=== PATIENT | female | born 1965 | race Native Hawaiian/Other Pacific Islander ===

== ENCOUNTER → 2022-08-10 | Outpatient (CLI) | payer OTHER ==
--- NOTE | 2022-08-10 15:09 | P.SLEEP ---
History of Present Illness DATE: 08/10/2022 CONSULTATION/NEW PATIENT EVALUATION HISTORY OF PRESENT ILLNESS/SLEEP-WAKE EVALUATION: 57year old lady had been ev aluated in the sleep center for possible obstructive sleep apnea hypopnea syndrome. Patient has history of obstructive sleep apnea hypopnea syndrome diagnosed in another institution about 6 years ago at that time she was started on treatment with CPAP, but then 4 different reasons the treatment was stopped. At the present time patient wants start treatment again. SLEEP SCHEDULE: Usually sleep schedule from 9 -11 PM and then patient wakes up every 2 hours up to 6 times . FALLING ASLEEP: Patient has some problems with the falling asleep, has TV set and bedroom. Restless leg symptoms. DURING SLEEP: [] Usually she sleeps on the side position with severe snoring and stop breathing during the sleep.No history of hypnogogical hallucinations, sleep paralysis, or cataplexy. Patient wakes up from sleep more than 6 times with nocturia. DURING THE DAY/WAKE STATE: In the morning patient wake up tired, falling asleep during the day, has problems with concentration, irritability, depression, s exual dysfunction.. [place] sleepiness scale significantly increased to 16. Sometimes patient may take naps during the day. PAST MEDICAL HISTORY: Diabetes mellitus, acid reflux, anxiety, colon cancer. PAST SURGICAL HISTORY: Status post surgical treatment of Colon CA.. MEDICATIONS: Metformin 500 mg 2 tablets twice a day, bupropion 150 mg once a day,Trazodone 50 mg at bedtime, gabapentin 600 mg twice a day, omeprazole 40 mg once a day,Ativan 1 mg at bedtime, Zocor 20 mg once a day, insulin, ozempic, pioglitazone. SOCIAL HISTORY: Positive for smoking for 40 years , alcohol consumption occ asional. FAMILY HISTORY: Hypertension, arthritis, sleep apnea, thyroid problems, diabetes. REVIEW OF SYSTEMS: Loud snoring, multiple awakenings from sleep, sleepiness. No fevers. No double vision. No recent chest pain. No shortness of breath. No abdominal pain. No bleeding episodes. No blood in urine. No seizure episodes. PHYSICAL EXAMINATION: GENERAL: A pleasant patient without any distress. VITAL SIGNS: BP 120/74, HR 70, RR 16, weight 192.2 pounds, height 5 foot 4-1/2 inches, body mass index 32.4. HEENT: PERRLA, EOMI. Evaluation of oropharynx showed tongue protrudes midline, low position of soft palate Mallampati 4. NECK: Supple. No JVD. Thyroid is not palpable. 16-1/4 inches in circumference. LUNGS: Clear to percussion and to auscultation. Good air exchange. No wheezing or rhonchi. HEART: S1, S2 regular. No murmurs, gallops or rubs. ABDOMEN: Soft and nontender. Bowel sounds are present. No organomegaly appreciated. EXTREMITIES: No clubbing or cyanosis. 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 Cranial nerves 2 to 7 intact. There is no fasciculation or atrophy noted. No focal deficits observed. ASSESSMENT: 1. Loud snoring, multiple awakenings from sleep, daytime sleepiness [place] Sleepiness Scale is 16, extremely low position of soft palate Mallampati 4, wide neck 16-1/4 inches in circumference, history of obstructive sleep apnea hypopnea syndrome in the past. Obstructive sleep apnea-hypopnea syndrome. 2. Diabetes mellitus. 3 obesity body mass index 32.4. 4. Acid reflux. 5 history of colon cancer, status post surgical treatment. 6. History of restless leg symptoms. 7. Anxiety. PLAN: 1. Polysomnography for evaluation of patient's breathing during sleep. 2. CPAP/BiPAP titration if sleep study confirms obstructive sleep apnea- hypopnea syndrome. 3. Preferable position during sleep on the side. 4. No driving if patient feels any sleepiness. Patient is aware of civil and criminal liability for unsafe driving. 5. Sleep hygiene with regular sleep time for at least 7.5-8 hours. 6. Watching weight. 7. Smoking cessation program Thank you very much for referring this patient for consultation. Sincerely, Jeff Mahajan MD, PhD, FAASM. Diplomat of [employer], Sleep Medicine Board by [employer] [employer] [facility] [place] Sleep Note - Sleep Note Sleep Note: Temperature: Pulse Rate: Respiratory Rate: Blood Pressure: SpO2: Height: Weight: BMI: Neck Circumference:
== END ==
LOC: SLEEP 14:05
PROVIDERS: ATTEND Internal Medicine
DX: G47.33 Obstructive sleep apnea (adult) (pediatric) (principal); E11.9 Type 2 diabetes mellitus without complications; K21.9 Gastro-esophageal reflux disease without esophagitis; F41.9 Anxiety disorder, unspecified; Z98.890 Other specified postprocedural states; Z85.038 Personal history of other malignant neoplasm of large intestine; E66.9 Obesity, unspecified; Z68.32 Body mass index [BMI] 32.0-32.9, adult; Z79.4 Long term (current) use of insulin
CPT/HCPCS: 99202

== ENCOUNTER 2024-08-13 08:30 | Day surgery (SDC) | payer MEDICARE, OTHER ==
[2024-08-08 15:10] VITALS: BMI 30.2
[2024-08-13 08:58] VITALS: TEMP 97.7
[2024-08-13] MEDS: LACTATED RINGERS 1,000 ML IV SCH (09:07)
[2024-08-13] MEDS: IV FLUID CONTINUATION 1,000 ML IV ONE (09:08)
[2024-08-13 09:14] LABS: Glucose,Whole Blood 202 mg/dL (70-110)
[2024-08-13] MEDS ORDERED: PROPOFOL 10 MG/ML 20 ML VIAL IV ONE (09:47)
[2024-08-13] MEDS ORDERED: LIDOCAINE 1% INJ 10MG/ML (20 ML MDV) ONE (09:47)
--- NOTE | 2024-08-13 09:53 | P.GSHP ---
History of Present Illness H&P Date: 08/13/24 Chief Complaint: Cancer screening 59-year-old female here for colonoscopy. Patient diagnosed with colon cancer at age 37. Last colonoscopy 5 years ago normal. No bowel complaints. Past Medical History Past Medical History: Cancer, Diabetes Mellitus, GERD/Reflux, Skin Disorder, Sleep Apnea/CPAP/BIPAP Additional Past Medical History / Comment(s): colon CA 2001-no radiation or chemo,psoriasis,no cpap History of Any Multi-Drug Resistant Organisms: None Reported Past Surgical History: Bowel Resection, Hysterectomy Additional Past Surgical History / Comment(s): colonoscopies Past Anesthesia/Blood Transfusion Reactions: No Reported Reaction Additional Past Anesthesia/Blood Transfusion Reaction / Comment(s): no hx blood transfusion Smoking Status: Former smoker - Past Family History Mother Family Medical History: No Reported History Medications and Allergies Home Medications Medication Instructions Recorded Confirmed Type Doxycycline Hyclate 50 mg PO QAM 08/08/24 08/13/24 History Escitalopram Oxalate [Lexapro] 20 mg PO HS 08/08/24 08/13/24 History Gabapentin 600 mg PO BID 08/08/24 08/13/24 History Insulin Aspart [NovoLOG] 5 units SQ TID-W/MEALS PRN 08/08/24 08/13/24 History Insulin Glargine,Hum.rec.anlog 20 units SQ QAM 08/08/24 08/13/24 History [Toujeo Solostar] Metoclopramide [Reglan] 5 mg PO BID 08/08/24 08/13/24 History Omeprazole 40 mg PO QAM 08/08/24 08/13/24 History Ranibizumab [Lucentis] 0.5 mg IO Q56D 08/08/24 08/13/24 History Risankizumab-Rzaa [Skyrizi] 150 mg SQ Q120D 08/08/24 08/13/24 History Simvastatin [Zocor] 20 mg PO HS 08/08/24 08/13/24 History buPROPion XL [Wellbutrin XL] 300 mg PO HS 08/08/24 08/13/24 History metFORMIN HCL ER [Glucophage XR] 500 mg PO BID 08/08/24 08/13/24 History Allergies Allergy/AdvReac Type Severity Reaction Status Date / Time No Known Allergies Allergy Verified 08/13/24 08:59 Surgical - Exam Vital Signs Temp Pulse Resp BP Pulse Ox 97.7 F 70 17 139/70 100 08/13/24 08:57 08/13/24 08:57 08/13/24 08:57 08/13/24 08:57 08/13/24 08:57 Physical exam: General: Well-developed, well-nourished HEENT: Normocephalic, sclerae nonicteric Abdomen: Nontender, nondistended Extremities: No edema Neuro: Alert and oriented Results - Labs Abnormal Lab Results - Last 24 Hours (Table) 08/13/24 Range/Units 09:11 POC Glucose (mg/dL) 202 H (70-110) mg/dL Assessment and Plan (1) Colon cancer screening Narrative/Plan: Will proceed with colonoscopy at this time. Current Visit: Yes Status: Acute Code(s): Z12.11 - SNOMED Code(s): 993130848
--- NOTE | 2024-08-13 10:05 | P.PCN ---
Date of Procedure: 08/13/24 Procedure(s) Performed: PREOPERATIVE DIAGNOSIS: Colon cancer screening with history of colon cancer POSTOPERATIVE DIAGNOSIS: Diverticulosis, poor prep PROCEDURE: Colonoscopy ANESTHESIA: MAC SURGEON: Robert Johnson M.D. SPECIMENS: None ENDOSCOPIC PROCEDURE: The patient was placed on the endoscopy table in the left decubitus position. The Olympus colonoscope was inserted into the anus and passed under direct visualization to the base of the cecum. The appendiceal orifice was visualized. From that point the scope was slowly withdrawn inspecting all surfaces carefully. There were no neoplastic inflammatory or polypoid lesions throughout the cecum, ascending, transverse, descending, sigmoid and rectum. I could not visualize a definite anastomotic site. There was mild scattered diverticulosis noted. The patient's prep was fair to poor. Digital rectal examination was normal. The patient was taken to the recovery room in stable condition per anesthesia guidelines. RECOMMENDATIONS: []
[2024-08-13 10:40] VITALS: BP 121/75; PULSE 75; RESP 17
== END 2024-08-13 10:43 | disposition home or self-care (01) ==
LOC: ORWHC2ENDO 08:30
PROVIDERS: ATTEND Surgery
DX: Z12.11 Encounter for screening for malignant neoplasm of colon (principal); K57.30 Diverticulosis of large intestine without perforation or abscess without bleeding; E11.9 Type 2 diabetes mellitus without complications; G47.33 Obstructive sleep apnea (adult) (pediatric); K21.9 Gastro-esophageal reflux disease without esophagitis; Z85.038 Personal history of other malignant neoplasm of large intestine; Z87.891 Personal history of nicotine dependence; Z90.710 Acquired absence of both cervix and uterus; Z79.899 Other long term (current) drug therapy; Z79.4 Long term (current) use of insulin; Z79.84 Long term (current) use of oral hypoglycemic drugs
CPT/HCPCS: J2003; J2704; G0105; 45378